=== PATIENT | female | born 1995 | race African-American/Black ===

== ENCOUNTER 2024-08-29 01:19 | Emergency (ER) | payer SELFPAY ==
[2024-08-29] MEDS ORDERED: diphenhydrAMINE 50 MG/ML VIAL ONE (02:20)
[2024-08-29] MEDS ORDERED: Metoclopramide HCl 10 MG (2 mL) VIAL ONE (02:20)
[2024-08-29] MEDS ORDERED: Acetaminophen 500 MG TAB ONE (02:21)
[2024-08-29] MEDS ORDERED: Ketorolac Tromethamine 30 MG (1 mL) VIAL ONE (02:21)
[2024-08-29 02:32] LABS: #Basophils 0.04 10x3/uL (0.0-0.2); #Eosinophils 0.04 10x3/uL (0.0-0.5); #Monocytes 0.81 10x3/uL (0.0-1.1); #Neutrophils 9.47 10x3/uL (1.5-8.4); %Basophils 0.3 % (0.0-2.0); %Eosinophils 0.3 % (0.0-6.0); %Lymphocytes 15.6 % (18.0-47.0); %Monocytes 6.6 % (0.0-10.0); %Neutrophils 76.7 % (40.0-75.0); Hematocrit 36.7 % (34.9-44.5); Mean Corpuscular HGB CONC 35.4 g/dL (32.0-36.0); Mean Corpuscular Hemoglobin 31.7 pg (27.0-33.0); Mean Corpuscular Volume 89.5 fL (81.6-98.3); Mean Platelet Volume 9.6 fL (7.4-10.4); Platelet Count 369 10x3/uL (150-450); RBC Distribution Width 12.3 % (11.5-14.5); White Blood Cell (WBC) Count 12.35 10x3/uL (3.5-10.5)
[2024-08-29 02:38] LABS: BHCG - Serum Negative (NEGATIVE); Pregs Control Background? CLEAR/WHITE (CLR/WHITE); Pregs Control Bar Appear? YES (CONTROL BAR)
[2024-08-29 02:47] LABS: ALT (SGPT) 11 U/L (Less than 34); AST (SGOT) 20 U/L (11-34); Albumin 3.6 g/dL (3.1-4.5); Alkaline Phosphatase 99 U/L (40-110); Anion Gap 13 mmol/L (10-20); BUN (Urea Nitrogen) 6 mg/dL (7.0-18.7); Bilirubin, Total 0.5 mg/dL (0.3-1.2); Calc. Creatinine Clearance 0 mL/min (70-130); Calcium 9.7 mg/dL (7.8-10.44); Carbon Dioxide 19 mmol/L (22-29); Chloride 109 mmol/L (98-107); Estimated GFR 120; Globulin 4.9 g/dL (2.4-3.5); Glucose 123 mg/dL (70-105); Lipase 9 U/L (8-78); Potassium 3.1 mmol/L (3.5-5.1); Protein, Total 8.5 g/dL (6.0-8.3); Sodium 138 mmol/L (136-145)
[2024-08-29] MEDS ORDERED: Potassium Chloride 20 MEQ TAB ONE (03:06)
== END 2024-08-29 03:29 | disposition home or self-care (01) ==
LOC: CSHERS 01:19
DX: R05.9 Cough, unspecified (principal); R19.7 Diarrhea, unspecified; E87.6 Hypokalemia; F17.210 Nicotine dependence, cigarettes, uncomplicated
CPT/HCPCS: 71046; 80053; 83690; 84703; 85025; 93005; 96361; 96365; 96375; J1200; J1885; J2765